=== PATIENT | male | born 1990 | race Caucasian/White ===

== ENCOUNTER 2016-04-09 11:43 | Day surgery (SDC) | payer OTHER ==
[2016-04-09] MEDS ORDERED: MIDAZOLAM 2 MG/2 ML INJ ONE (12:26)
[2016-04-09] MEDS ORDERED: FENTANYL CITRATE INJ/PF 100 MCG/2 ML AMPUL ONE (12:26)
[2016-04-09] MEDS ORDERED: DEXAMETHASONE SOD PHOS INJ 10 MG/1 ML VIAL ONE (12:27)
[2016-04-09] MEDS ORDERED: PROPOFOL INJ 200 MG/20 ML VIAL IV ONE (12:27)
[2016-04-09] MEDS ORDERED: ONDANSETRON HCL INJ/PF 4 MG/2 ML SDV ONE (12:27)
[2016-04-09] MEDS ORDERED: SUCCINYLCHOLINE CHLORIDE INJ 200 MG/10 ML VIAL ONE (12:28)
[2016-04-09] MEDS ORDERED: ROCURONIUM BROMIDE INJ 50 MG/5 ML VIAL IV ONE (12:28)
[2016-04-09] MEDS ORDERED: HYDROMORPHONE HCL INJ/PF 2 MG/ML AMPULE ONE (12:29)
[2016-04-09] MEDS: OXYMETAZOLINE HCL 0.05% NASAL SPRAY 15 ML BOTTLE ONE ×2 (13:19)
[2016-04-09] MEDS ORDERED: OXYCODONE-ACETAMINOPHEN 5-325 MG TABLET ONE (14:08)
--- NOTE | 2016-04-09 14:48 | OPERATIVE REPORT E ---
Operative Report NAME: SILVINA FULLER : 1990 AGE: 26Y DATE OF SURGERY: 04/09/2016 ROOM: INDICATIONS FOR SURGERY: This is a 26-year-old male with a history of chronic tonsillitis. Please see his outpatient medical record for complete details regarding his medical history and examination. PREOPERATIVE DIAGNOSIS: Recurrent tonsillitis. POSTOPERATIVE DIAGNOSIS: Recurrent tonsillitis. PROCEDURE PERFORMED: Tonsillectomy. SURGEON: JANAE SILVERMAN M.D. FINDINGS: Bilateral cryptic tonsils with right tonsil slightly larger than left. ESTIMATED BLOOD LOSS: 5 mL. DESCRIPTION OF THE OPERATION: After properly identifying the patient, obtaining informed consent and verifying the surgical site, the patient was brought to the main operating room, placed in a supine position, and general endotracheal anesthesia was obtained in a standard fashion. The bed was turned 90 degrees. The patient's neck was extended via shoulder roll and draped in the usual manner. Formal surgical time out was then called. Next, a Katharina-Benito type mouth gag with slotted tongue depressor was inserted open and suspended from a [place]. There was no evidence of bifid uvula or submucosal cleft palate by inspection and palpation. Electrocautery assisted tonsillectomy was then performed. The right tonsil was retracted inferomedially and an incision was made at the superior pole. A subcapsular plane of dissection was developed and the tonsil was excised without complication. Hemostasis within the fossa was obtained using suction cautery. Similar procedure was then performed for the left tonsil. The oropharynx was irrigated with copious amounts of sterile water and suctioned dry. Mouth gag was removed. The mouth, teeth, lips, and gums were inspected and found to be free of any surgical trauma. The patient was then returned to Anesthesia. He was awakened in the operating room and taken to the PACU in stable condition having tolerated the procedure well. DICTATING PHYSICIAN: JANAE SILVERMAN M.D. [id number] PHY#: [id number] ID: [id number] JOB#: [id number] ACCT: [id number] cc:JANAE SILVERMAN M.D. >
== END 2016-04-09 14:55 | disposition home or self-care (01) ==
LOC: SC 11:43
PROVIDERS: ATTEND Otolaryngology
PROC: 0CTPXZZ Resection of Tonsils, External Approach (ICD-10-PCS; principal; 2016-04-09 13:00)
DX: J35.1 Hypertrophy of tonsils (principal); F17.210 Nicotine dependence, cigarettes, uncomplicated
CPT/HCPCS: 88304 ×2; 42826; J2250; J3490 ×2; J3010; J1170; J0330; J2405; J2704; J1100; 170